=== PATIENT | female | born 1970 | race Caucasian/White ===

== ENCOUNTER 2020-06-16 09:51 | Emergency (ER) | payer BC, OTHER ==
--- NOTE | 2020-06-16 10:11 | TELE ---
HPI Do you have fever,cough or shortness of breath?: No - General Reason For Visit: COVID19 TESTING History Source: Patient Exam Limitations: No Limitations - History of Present Illness Timing/Duration: unsure Associated Symptoms: reports: denies symptoms 06/16/20 10:07 49-year-old female requesting COVID testing for work. Patient states the [employer] [place] and denies any medical history or symptoms of COVID. Past History - Travel History Traveled outside of the country in the last 30 days: No Close contact w/someone who was outside of country & ill: No - Psycho-Social/Smoking History Patient Lives Alone: No Lives with/in: spouse/SO Review of Systems - Review of Systems Able to Perform ROS?: Yes Constitutional: No: Symptoms Reported HEENTM: No: Symptoms Reported Respiratory: No: Symptoms reported Cardiac (ROS): No: Symptoms Reported ABD/GI: No: Symptoms Reported : No: Symptoms Reported Musculoskeletal: No: Symptoms Reported Integumentary: No: Symptoms Reported Neurological: No: Symptoms reported Endocrine: No: Symptoms Reported Hematologic/Lymphatic: No: Symptoms Reported *Physical Exam - Physical Exam General Appearance: Yes: Appropriately Dressed. 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 Exam: Limited otherwise normal PE. Plan: COVID test ordered Discharge Diagnosis at time of Disposition: Encounter for screening laboratory testing for COVID-19 virus - Referrals Follow-up Referral(s): Karolina العراقي MD [Primary Care Provider] - - Patient Instructions - Discharge Disposition: HOME Condition at time of Disposition: Good
== END 2020-06-16 10:12 | disposition home or self-care (01) ==
LOC: JVIRT 09:51
DX: Z11.59 Encounter for screening for other viral diseases (principal)
CPT/HCPCS: Q3014-GT; U0003